=== PATIENT | male | born 1990 ===

== ENCOUNTER 2023-02-10 05:39 | Day surgery (SDC) | payer OTHER ==
[2023-02-10] MEDS ORDERED: NEXIUM 24HR20 MG PO (08:26)
== END 2023-02-10 09:50 | disposition home or self-care (01) ==
LOC: AMB-ENDOS 05:39
PROVIDERS: ATTEND Surgery
DX: K31.7 Polyp of stomach and duodenum (principal); K29.50 Unspecified chronic gastritis without bleeding; K44.9 Diaphragmatic hernia without obstruction or gangrene; E66.09 Other obesity due to excess calories; R10.13 Epigastric pain; G47.30 Sleep apnea, unspecified; Z20.822 Contact with and (suspected) exposure to COVID-19

== ENCOUNTER 2023-08-30 08:05 | Outpatient (CLI) | payer OTHER ==
[~2023-08-30 08:05] MED LIST: NEXIUM 24HR20 MG PO
[2023-08-30 08:36] LABS: ABG PH 7.423 (7.35-7.45); ABG pCO2 40.8 mmHg (35-45); BASE EXCESS 1.5 mmol/l; SaO2 97.6 %; Tco2 27.3 mmol/l
[2023-08-30 08:37] LABS: allen test SATISFACTORY; o2 21 %; puncture site RADIAL LEFT
== END 2023-08-30 08:06 | disposition home or self-care (01) ==
LOC: LAB 08:05
PROVIDERS: ATTEND Surgery
DX: G47.33 Obstructive sleep apnea (adult) (pediatric) (principal)